=== PATIENT | female | born 1995 | race Hispanic/Latino ===

== ENCOUNTER 2019-10-27 22:12 | Observation (INO) | payer OTHER, SELFPAY ==
[2019-10-27 22:17] VITALS: BP 125/65; PULSE 84; RESP 16; TEMP 36.6; O2SAT 100
--- NOTE | 2019-10-27 22:26 | ED.SKABFB ---
HPI - Skin/Abscess/Foreign Bdy General Chief complaint: Extremity Injury, Lower Stated complaint: rash, vag infx, 35+ wks preg Time Seen by Provider: 10/27/19 22:25 Source: patient and RN notes reviewed Mode of arrival: ambulatory Limitations: no limitations History of Present Illness HPI narrative: A 24 y/o female, who is 36 weeks gravid and is A0, presents to the ED with a erythematous rash and edema to her LEEANN hands/wrists and LEEANN feet/ankles for the past week. She notes that she also has a vaginal infection that her doctor in [place] has already evaluated and prescribed her medication for, but she denies it resolving her symptoms. She also denies any ABD pain, BUTLER, vaginal bleeding, CP, or SOB. MD complaint: rash (erythematous) Onset (ago): week(s) (1) Location: L hand (and wrist), R hand (and wrist), L foot (and ankle) and R foot (and ankle) Associated symptoms: other (Edema to LEEANN hands/wrists and LEEANN feet/ankles. Vaginal infection.) Treatments prior to arrival: none Review of Systems Review of Systems: Narrative: CARDIOVASCULAR: Denies chest pain. RESPIRATORY: Denies dyspnea. GASTROINTESTINAL: Denies abdominal pain. GENITOURINARY: Denies vaginal bleeding. Reports a vaginal infection. SKIN: Reports a erythematous rash and edema to her LEEANN hands/wrists and LEEANN feet/ankles. NEUROLOGIC: Denies headache. All systems reviewed & are unremarkable except as noted in HPI and below PMFSH Past Medical History Medical History (Updated 10/28/19 @ 00:26 by Shaina Rodríguez MD) Medical history unknown Surgical History Surgical History (Updated 10/27/19 @ 22:42 by Ilan Denis) Surgical history unknown Social History Social History (Updated 10/27/19 @ 22:42 by Ilan Denis) Smoking status: Unknown if ever smoked Exam Narrative: Exam Narrative: GENERAL: Well-appearing, well-nourished, and in no acute distress. HEAD: Normocephalic, atraumatic. EYES: PERRLA and EOMI. ENT: Nares clear, no rhinorrhea or epistaxis. Mucous membranes moist. NECK: Supple. CHEST: Clear to auscultation. No respiratory distress. HEART: Regular rate and rhythm. No murmur heard. Normal peripheral pulses. ABDOMEN: Soft, nontender, gravid, normal active bowel sounds. No RUQ abd pain. HUMAN RESOURCES BENEFITS COORDINATOR/: Labia majora and minora normal without lesions. Vagina without blood. No cervical motion tenderness. No adnexal tenderness or fullness bilaterally. White, mucoid discharge present. Os is posterior and closed. EXTREMITIES: Normal range of motion. Nonpitting edema to LEEANN feet. SKIN: Warm and dry. Petechiae LEEANN hands/wrists and ankles/feet. NEURO: No focal deficits. Alert and oriented X3. Course Course Emergency Course: Patient presenting for evaluation of rash, actually on exam these are petechiae of her feet and hands. Patient without any purpura. Mild edema. Given initial presentation, was concern for possible preeclampsia. IV access obtained, labs are drawn. pulse was detected via Doppler in the 130s. Patient is not hypertensive. No complaint of right upper quadrant pain. Urinalysis does not have proteinuria. Pelvic exam is most consistent with candidal infection with white discharge. Trichomonas is negative. Patient with thrombocytopenia without previous labs that we can compare to. No transaminitis. No acute kidney injury. No severe elevation in uric acid. No coagulopathy. Spoke with on-call physician Dr. Mtz, patient does not meet criteria for help syndrome or preeclampsia. Dr. Mtz recommends evaluation in labor and delivery for NST study. Patient was discharged from the emergency department and taken over to labor and delivery for assessment. Consultations Consultation #1: Discussed case with Dr. Mtz (OBGYN). Recommends no medications given at this time and would like the pt to be transferred to labor and delivery to have an NST done. Date: 10/28/19 Time: 00:12 Vital Signs Vital signs: Vital Signs Temperature 36.6 C 10/27/19 22:17 Pul
[2019-10-27 23:08] LABS: Basophils Percent Auto 0.4 % (0.2-1.2); Eosinophils Absolute Auto 0.3 K/mm3 (0-0.3); Eosinophils Percent Auto 3.8 % (0-4.4); Hematocrit 32.8 % (37.0-47.0); Hemoglobin 11.2 g/dL (12.0-15.0); Immature Granulocyte Absolute 0.06 K/mm3 (0.00-0.031); Immature Granulocyte Percent A 0.8 % (0-0.5); Lymphocytes Percent Auto 31.5 % (18.3-44.2); Mean Corpuscular HGB Conc 34.1 g/dl (32-36); Mean Corpuscular Hemoglobin 33.2 pg (26-34); Mean Corpuscular Volume 97.3 fl (80-100); Mean Platelet Volume 12.6 fl (7.4-10.4); Monocytes Absolute Auto 0.7 K/mm3 (0.1-0.6); Monocytes Percent Auto 8.6 % (2.6-8.5); Neutrophils Absolute Auto 4.4 K/mm3 (1.3-6.7); Neutrophils Percent Auto 54.9 % (45.5-73.1); Platelet Count Result 109 k/mm3 (150-375); Red Blood Count 3.37 M/mm3 (4.2-5.4); Red Cell Distribution Width 13.2 % (11.5-14.5); White Blood Count 7.9 K/mm3 (4.5-10.0)
[2019-10-27 23:10] LABS: Add Urine Microscopic? NO; Appearance Urine Clear (Clear); Bilirubin Urine Negative (Negative); Blood Urine Negative (Negative); Color Urine Straw (Yellow); Glucose Urine UA Negative (Negative); Ketones Urine Negative (Negative); Leukocyte Esterase Ur Negative LEU/UL (Negative); Nitrate Urine Negative (Negative); Protein Urine Negative (Negative); Specific Grav Ur 1.006 (1.001-1.035); Urobilinogen Urine Negative mg/dL (<2.0)
[2019-10-27 23:18] LABS: Prothrombin Time 12.4 Seconds (11.1-14.7)
[2019-10-27 23:19] LABS: Alanine Aminotransferase 11 U/L (4-35); Albumin Level 3.2 g/dL (3.5-5.1); Alkaline Phosphatase 134 U/L (38-126); Aspartate Amino Transferase 18 U/L (14-36); Bilirubin,Total 0.2 mg/dL (0.2-1.3); Blood Urea Nitrogen 3 mg/dL (7-17); Calcium 8.7 mg/dL (8.4-10.2); Carbon Dioxide 23 mmol/L (22-30); Chloride 107 mmol/L (98-107); Estimated CRCL calculation 184 ml/min; Estimated Glomerular Filt Rate > 60; Glucose 88 mg/dL (65-105); Partial Thromboplastin Time 29.2 SECONDS (22.3-36.8); Potassium 3.7 mmol/L (3.4-5.0); Sodium 135 mmol/L (137-145); Uric Acid 2.8 mg/dL (2.5-7.5)
[2019-10-28 00:31] VITALS: BP 112/75; PULSE 90; RESP 17; O2SAT 100
[2019-10-28] MEDS: FLUCONAZOLE 150 MG TABLET PO (00:31)
[2019-10-28 01:04] VITALS: BP 110/66; PULSE 77
[2019-10-28 01:52] VITALS: BP 110/66; PULSE 77
--- NOTE | 2019-11-13 10:18 | PM.OBTRLD ---
OB - Triage/Final Diagnosis Evaluation Laboratory results: Laboratory Tests 10/27/19 10/27/19 10/27/19 22:56 22:57 22:57 WBC 7.9 RBC 3.37 L Hgb 11.2 L Hct 32.8 L MCV 97.3 MCH 33.2 MCHC 34.1 RDW 13.2 Plt Count 109 L MPV 12.6 H Immature Gran % (Auto) 0.8 H Neut % (Auto) 54.9 Lymph % (Auto) 31.5 [place] % (Auto) 8.6 H Eos % (Auto) 3.8 Baso % (Auto) 0.4 Lymph # (Auto) 2.50 [place] # (Auto) 0.7 H Eos # (Auto) 0.3 Baso # (Auto) 0.0 Abs Immat Gran (auto) 0.06 H Absolute Neuts (auto) 4.4 Absolute Nucleated RBC 0.0 Nucleated RBC % 0.0 PT 12.4 INR 1.0 APTT 29.2 Sodium Potassium Chloride Carbon Dioxide BUN Creatinine Estim Creat Clear Calc Estimated GFR Glucose Uric Acid Calcium Total Bilirubin AST ALT Alkaline Phosphatase Total Protein Albumin Urine Color Urine Appearance Urine pH Ur Specific [place] Urine Protein Urine Glucose (UA) Urine Ketones Ur Blood (Man) Urine Nitrate Urine Bilirubin Urine Urobilinogen Leukocyte Esterase Rfl C.trachomatis RNA (TMA) N.gonorrhoeae RNA (TMA) Trichomonas Direct ID Negative 10/27/19 10/27/19 10/27/19 22:57 22:58 23:01 WBC RBC Hgb Hct MCV MCH MCHC RDW Plt Count MPV Immature Gran % (Auto) Neut % (Auto) Lymph % (Auto) [place] % (Auto) Eos % (Auto) Baso % (Auto) Lymph # (Auto) [place] # (Auto) Eos # (Auto) Baso # (Auto) Abs Immat Gran (auto) Absolute Neuts (auto) Absolute Nucleated RBC Nucleated RBC % PT INR APTT Sodium 135 L Potassium 3.7 Chloride 107 Carbon Dioxide 23 BUN 3 L Creatinine 0.40 L Estim Creat Clear Calc 184 Estimated GFR > 60 Glucose 88 Uric Acid 2.8 Calcium 8.7 Total Bilirubin 0.2 AST 18 ALT 11 Alkaline Phosphatase 134 H Total Protein 6.0 L Albumin 3.2 L Urine Color Straw Urine Appearance Clear Urine pH 7.0 Ur Specific [place] 1.006 Urine Protein Negative Urine Glucose (UA) Negative Urine Ketones Negative Ur Blood (Man) Negative Urine Nitrate Negative Urine Bilirubin Negative Urine Urobilinogen Negative Leukocyte Esterase Rfl Negative C.trachomatis RNA (TMA) Not detected N.gonorrhoeae RNA (TMA) Not detected Trichomonas Direct ID Final Diagnosis (1) NST (non-stress test) reactive: Code(s): Z36.89 - Encounter for other specified screening Status: Acute
== END 2019-10-28 01:45 | disposition home or self-care (01) ==
LOC: ANHED 10-28 00:26 → ANHOBPP 10-28 00:54
PROVIDERS: Admitting Provider Obstetrics & Gynecology; Emergency Provider Emergency Medicine; Visit Provider Obstetrics & Gynecology
DX: O99.113 Other diseases of the blood and blood-forming organs and certain disorders involving the immune mechanism complicating pregnancy, third trimester (principal); D69.6 Thrombocytopenia, unspecified; O98.813 Other maternal infectious and parasitic diseases complicating pregnancy, third trimester; B37.9 Candidiasis, unspecified; Z36.89 Encounter for other specified antenatal screening; Z3A.36 36 weeks gestation of pregnancy
CPT/HCPCS: 36415; 59025; 80053; 81003; 84550; 85025; 85610; 85730; 87070; 87491; 87591; 87808; 99285; A9270; G0378; G0379